=== PATIENT | male | born 1950 | race Caucasian/White ===

== ENCOUNTER 2021-07-02 12:48 | Emergency (ER) | payer MEDICARE, OTHER ==
[2021-07-02 14:44] LABS: ALBUMIN 3.8 g/dL (3.4-5.0); BILIRUBIN - TOTAL 0.5 mg/dL (0.2-1.0); BUN/CREAT RATIO (CALC) 7.8 RATIO; CREATININE 0.77 mg/dL (0.67-1.17); GLOBULIN (CALCULATION) 3.6 g/dL; POTASSIUM 3.8 mmol/L (3.5-5.1); TOTAL PROTEIN 7.4 g/dL (6.4-8.2)
[2021-07-02 14:49] LABS: BILIRUBIN NEGATIVE (NEGATIVE); BLOOD NEGATIVE Ery/uL (NEGATIVE); CLARITY CLEAR (CLEAR); COLOR YELLOW (YELLOW); GLUCOSE (U) 3+ mg/dL (NORMAL); LEUKOCYTES NEGATIVE Leu/uL (NEGATIVE); NITRITE NEGATIVE (NEGATIVE); PROTEIN NEGATIVE (NEGATIVE); UROBILINOGEN 0.2 mg/dL (0.2-1.0)
[2021-07-02 14:53] LABS: BASOPHIL 0.8 % (0-2); EOSINOPHIL 1.4 % (0-7); HCT 49.5 % (42.0-52.0); HGB 16.9 g/dl (13.2-18.0); INR 0.99 (0.9-1.2); LYMPHOCYTE 19.4 % (15-48); MCH 31.5 pg (25.0-31.0); MCHC 34.1 g/dL (32.0-36.0); MCV 92.2 fL (78.0-100.0); MONOCYTE 5.1 % (0-12); MPV 11.6 fL (6.0-9.5); NEUTROPHIL 72.5 % (41-80); NRBC 0; PLT 205 K/uL (150-400); PROTHROMBIN TIME 12.5 SECONDS (11.8-13.4); PTT 25.8 SECONDS (24.4-34.7); RBC 5.37 M/uL (4.70-6.00); RDW 12.1 % (11.5-14.0); WBC 6.6 K/uL (4.0-10.5)
[2021-07-03] MEDS ORDERED: CRESTOR20 MG PO (15:01)
[2021-07-03] MEDS ORDERED: ASPIRIN325 MG PO (15:01)
[2021-07-03] MEDS ORDERED: METFORMIN HCL500 MG PO (15:01)
== END 2021-07-03 15:20 | disposition home or self-care (01) ==
LOC: FER 12:48
PROVIDERS: Emergency Medicine
DX: I63.9 Cerebral infarction, unspecified (principal); I10 Essential (primary) hypertension; E11.9 Type 2 diabetes mellitus without complications
CPT/HCPCS: 36415; 70450; 70551; 71046; 80053; 81003; 84484; 85025; 85610; 85730; 93005; Q9967